=== PATIENT | male | born 1990 | race Caucasian/White ===

== ENCOUNTER 2019-12-16 13:52 | Emergency (ER) | payer OTHER, SELFPAY ==
[2019-12-16 14:28] VITALS: BP 133/81; PULSE 96; RESP 18; TEMP 37.9; O2SAT 98; BMI 24.4
--- NOTE | 2019-12-16 14:31 | DI.RAD.S_ITS ---
PROCEDURE: XR CHEST 2V INDICATIONS: cough TECHNIQUE: 2 views of the chest were acquired. COMPARISON: None. FINDINGS: Surgical changes and devices: None. Lungs and pleura: Mild increased attenuation within left infrahilar/retrocardiac region is present. No large effusion or pneumothorax is identified. Mediastinum: Mediastinal contours are normal. Heart size is normal. Bones and chest wall: No suspicious bony abnormalities. Soft tissues appear unremarkable. IMPRESSION: Left lower lobe pneumonia versus atelectasis. Dictated by: Parish Carbone M.D. on 12/16/2019 at 13:40 Approved by: Parish Carbone M.D. on 12/16/2019 at 13:41
[2019-12-16 15:09] LABS: Influenza A - CEPHEID Flu A NEGATIVE (NEGATIVE); Influenza B - CEPHEID Flu B NEGATIVE (NEGATIVE)
[2019-12-16 17:54] VITALS: BP 118/81; PULSE 89; RESP 17; O2SAT 97
--- NOTE | 2019-12-16 19:38 | ED_ITS ---
HPI - URI/Sore Throat General Chief Complaint: Upper Respiratory Symptoms Stated Complaint: cold/flu symptoms started today Time Seen by Provider: 12/16/19 17:49 Source: patient Mode of arrival: Ambulatory Limitations: no limitations History of Present Illness HPI Narrative: 29M smoker with history of blood pressure presents with a chief complaint of a few days of subjective fever, chills and cough productive of y ellow sputum. He has multiple sick contacts at home. He has no nausea, vomiting or diarrhea. MD Complaint: fever and cough Onset (ago): day(s) Duration: constant Severity: moderate Relieving factors: nothing Exacerbating factors: nothing Description of mucous: yellow Able to tolerate fluids by mouth: Yes Context: sick contacts Associated symptoms: fever and chills Treatments prior to arrival: acetaminophen and ibuprofen Related Data Home Medications Medication Instructions Recorded Confirmed losartan 50 mg PO DAILY 12/16/19 12/16/19 sertraline 50 mg PO DAILY 12/16/19 Previous Rx's Medication Instructions Recorded amoxicillin-pot clavulanate 1 tab PO BID #20 tab 12/16/19 [Augmentin] benzonatate [Tessalon Perles] 100 mg PO TID PRN #14 cap 12/16/19 Allergies Allergy/AdvReac Type Severity Reaction Status Date / Time No Known Drug Allergies Allergy Verified 12/16/19 14:27 Review of Systems Constitutional Constitutional: Reports chills, Denies fatigue, Reports fever(s), Denies frequent falls, Denies lethargy and Denies weakness Eyes Eyes: Denies change in vision, Denies eye discharge, Denies irritation and Denies loss of vision ENT Ears, Nose, Mouth, and Throat: Denies change in voice, Denies dizziness, Denies neck pain, Denies sore throat and Denies throat swelling Cardiovascular Cardiovascular: Denies chest pain, Denies irregular heart rhythm, Denies lightheadedness, Denies palpitations, Denies dyspnea, Denies dyspnea on exertion and Denies orthopnea Respiratory Respiratory: Reports cough, Denies dyspnea, Denies dyspnea on exertion and Denies wheezing Gastrointestinal Gastrointestinal: Denies abdominal pain, Denies change in bowel habits, Denies diarrhea, Denies nausea and Denies vomiting Genitourinary Genitourinary: Denies hematuria, Denies flank pain, Denies urinary incontinence and Denies urinary urgency Musculoskeletal Musculoskeletal: Denies back pain, Denies muscle weakness, Denies neck pain, Denies numbness and Denies tingling Integumentary/Breasts Skin/Breast: Denies pruritus, Denies erythema, Denies rash and Denies wounds Neurologic Neurologic: Denies behavioral changes, Denies confusion, Denies dizziness, Denies frequent falls, Denies loss of vision, Denies numbness, Denies tingling and Denies weakness Psychiatric Psychiatric: Denies anxiety, Denies behavioral changes, Denies confusion, Denies depression, Denies homicidal ideation and Denies suicidal ideation Endocrine Endocrine: Denies fatigue, Denies flushing and Denies palpitations Hematologic/Lymphatic Hematologic/Lymphatic: Denies easy bruising Allergic/Immunologic Allergic/Immunologic: Denies urticaria, Denies throat swelling and Denies wheezing Patient History Social History Smoking Status: Current every day smoker Smoking Status: Current every day smoker tobacco type: cigarettes alcohol intake frequency: a few times a week Substance Use Type: does not use Exam Narrative Exam Narrative: GENERAL: [29] year old patient appears stated age. Well- nourished, well-developed patient, in mild distress. HEAD: Atraumatic. Normocephalic. EYES: Pupils equal round and reactive. Extraocular motions intact. No scleral icterus. No injection or drainage. ENT: Nose without bleeding, purulent drainage. Throat without erythema, tonsillar hypertrophy or exudate. Airway patent. NECK: Trachea midline. Non tender CARDIOVASCULAR: Regular rate and rhythm without murmurs, gallops, or rubs. RESPIRATORY: Faint crackles in left base. GASTROINTESTINAL: Abdomen soft, non-tender, nondistended. EXTREMITIES: No edema or joint tenderness. BACK: Nontender without deformity or crepitance. No flank tenderness. NEURO: AOx3. SKIN: No rash or erythema of visible areas Initial Vital Signs Initial Vital Signs: Vital Signs Temperature 100.3 F H 12/16/19 14:28 Pulse Rate 96 H 12/16/19 14:28 Respiratory Rate 18 12/16/19 14:28 Blood Pressure 133/81 12/16/19 14:28 Pulse Oximetry 98 12/16/19 14:28 Course Orders Ordered: ED Orders 12/16/19 14:31 Chest [XR chest 2V] Stat 12/16/19 14:32 Influenza A & B (PCR) Stat Vital Signs Vital signs: Vital Signs - 8 hr 12/16/19 14:28 12/16/19 17:54 Temperature 100.3 F H Pulse Rate 96 H 89 Respiratory Rate 18 17 Blood Pressure 133/81 Blood Pressure [Right Arm] 118/81 Pulse Oximetry 98 97 MDM - URI/Sore Throat Lab Data Labs: Lab Results 12/16/19 Range/Units 14:32 Influenza A (RT-PCR) Flu a negative (NEGATIVE) Influenza B (RT-PCR) Flu b negative (NEGATIVE) Imaging Data Chest x-ray: Radiologist's Impression: Redd Jarrell 29 M [address] [address] XRay Report Signed Patient: Redd JarrellMR#: [id number] : 1990Acct:[id number] Age/Sex: 29 / MDate of Service: 12/16/19 Loc: ED Accession Number: [id number] Procedure: XR chest 2V Ordering Provider: Jarett Claudio D.O. PROCEDURE: XR CHEST 2V INDICATIONS: cough TECHNIQUE: 2 views of the chest were acquired. COMPARISON: None. FINDINGS: Surgical changes and devices: None. Lungs and pleura: Mild increased attenuation within left infrahilar/retrocardiac region is present. No large effusion or pneumothorax is identified. Mediastinum: Mediastinal contours are normal. Heart size is normal. Bones and chest wall: No suspicious bony abnormalities. Soft tissues appear unremarkable. IMPRESSION: Left lower lobe pneumonia versus atelectasis. Dictated by: Parish Carbone M.D. on 12/16/2019 at 13:40 Approved by: Parish Carbone M.D. on 12/16/2019 at 13:41 Discharge Plan Departure Patient Disposition: Home Clinical Impression: Pneumonia Qualifiers: Pneumonia type: due to unspecified organism Laterality: left Lung location: lower lobe of lung Qualified Code(s): J18.9 - Pneumonia, unspecified organism Discharge Date/Time: 12/16/19 18:04 Instructions: DI for Pneumonia -- Adult Activity Restrictions/Additional Instructions: *You have been diagnosed with [ community acquired pneumonia ] *What to do: *Take medications as directed: *Follow up with your primary care provider in 2-3 days, call for an appointment. Let them know you were seen in the Emergency Department and that we ask that you be seen in follow up *Return to ER if you should have any new, worsening or concerning symptoms Prescriptions: New amoxicillin-pot clavulanate [Augmentin] 875-125 mg tablet 1 tab PO BID Qty: 20 RF: 0 benzonatate [Tessalon Perles] 100 mg capsule 100 mg PO TID PRN (Reason: cough) Qty: 14 RF: 0 No Action losartan 50 mg tablet 50 mg PO DAILY RF: 0 sertraline 25 mg tablet 50 mg PO DAILY RF: 0
== END 2019-12-16 18:04 | disposition home or self-care (01) ==
PROVIDERS: Emergency Provider Emergency Medicine
DX: J18.9 Pneumonia, unspecified organism (principal)
CPT/HCPCS: 71046; 87502; 99281; 99283